=== PATIENT | female | born 1955 | race Hispanic/Latino ===

== ENCOUNTER 2016-12-23 17:06 | Outpatient (CLI) | payer BC ==
--- NOTE | 2016-12-24 11:39 | Magnetic Resonance Report ---
MRI BRAIN WITHOUT AND WITH CONTRAST: 12/23/16 00:00:00 CLINICAL: TECHNIQUE: Axial diffusion, T1, gradient echo T2*, coronal and axial FLAIR, sagittal, coronal and axial T2 and sagittal T1 plus coronal and axial postcontrast T1 sequences on a 1.5 Marium magnet. 12.0 cc of Multihance was injected intravenously for the contrast portion of the exam. Consent was obtained prior to the administration of contrast. FINDINGS: Normal ventricles and sulci. No restricted diffusion. No abnormal signal. No mass or enhancing lesion. No hemorrhage, edema or extra-axial collection. Normal pituitary and optic chiasm. The brainstem and cerebellum are normal. Intact vascular flow voids. The orbits, sinuses and soft tissues are normal. Normal calvarium and skull base. IMPRESSION: Normal study.
== END 2016-12-23 17:07 | disposition home or self-care (01) ==
LOC: MRI 17:06
PROVIDERS: ATTEND Specialist
DX: G35 Multiple sclerosis (principal); F32.9 Major depressive disorder, single episode, unspecified; F41.9 Anxiety disorder, unspecified; F17.200 Nicotine dependence, unspecified, uncomplicated
CPT/HCPCS: 70553; A9577

== ENCOUNTER 2017-06-29 07:51 | Day surgery (SDC) | payer BC ==
[~2017-06-29 07:51] MED LIST: TETRACAINE 0.5% OS PRN
[2017-06-29] MEDS ORDERED: NACL BACTERIOSTATIC INFILTRATI ONE ×2 (08:36→09:10)
[2017-06-29] MEDS: VIGAMOX OS SCH ×3 (09:35→09:45)
[2017-06-29] MEDS: AK-Dilate OS SCH ×3 (09:35→09:45)
[2017-06-29] MEDS: MYDRIACYL OS SCH ×3 (09:35→09:45)
[2017-06-29] MEDS ORDERED: VERSED ONE (10:16)
[2017-06-29] MEDS ORDERED: SUBLIMAZE ONE (10:16)
--- NOTE | 2017-06-29 10:43 | Operative Report ---
Operative Report Operative Report: PATIENT'S NAME: DATE OF : DATE OF SURGERY: 06/29/2017 PREOPERATIVE DIAGNOSIS: Cataract left eye POSTOPERATIVE DIAGNOSIS: Same OPERATIVE PROCEDURE: Phacoemulsification with intraocular lens implantation, left eye SURGEON: Anjana Anderson M.D. CRIME LABORATORY ANALYST SURGEON: Breonna Lens: [id number] 25.5 D ANESTHESIA: Monitored anesthesia care in combination with topical and intracameral anesthesia because of the established specific risk of reflux, arrhythmias, or anxiety attacks associated with ocular manipulation, as well as the difficulty of the lamps tester and inspector to manage such potentially catastrophic events while simultaneously attempting to complete the surgical procedure and was deemed necessary for the patient's safety to have an Industrial Eng present during the procedure whenever possible. An Industrial Eng was utilized to regulate the intravenous sedation of the patient so the patient was cooperative yet not asleep in order for the patient to successfully maintain fixation of the eye on the operating light of the microscope. COMPLICATIONS: No surgical complications No blood loss. ALLERGIES: No known drug allergies PROGNOSIS: Excellent INDICATIONS FOR SURGERY: The patient is undergoing surgery in the hopes of eliminating or improving these visual difficulties. PROCEDURE: After arriving at the surgery center, the patient was given topical anesthetic and dilating drops, as noted in the record. The patient was then taken into the operating room and given more anesthetic drops. The eyelids , lashes, and lid margins were scrubbed with Betadine solution, and the patient was draped. The Nurse Industrial Eng administered IV sedation and monitored the patient during the procedure. The eye was then fixated with a 0.12, and a stab incision was made in the peripheral clear cornea into the anterior chamber. This was made on my left side. Viscoelastic was next used to fill the anterior chamber. The eye was once again fixated with the 0.12 forceps and a keratome was used make an incision in clear cornea peripherally on my right hand side temporally. The capsule forceps were used to open the central anterior capsule and then make a continuous round capsulotomy. Hydrodissection was carried out utilizing a cannula and balanced salt solution to delineate the cortical material from the capsule and the nucleus from the cortical material. The phaco tip was introduced into the eye and used to remove the anterior cortical material in the area of the capsulotomy. Then the phaco tip was buried into the nucleus, and a chopping instrument was introduced into the eye and used to provide countertraction in the nucleus between this instrument and the phaco tip fracturing the nucleus. This procedure was repeated multiple times, providing multiple small segments of the lens, and then the phaco tip was used to remove each of these segments. An I/A tip was then used to remove the remaining cortex. The anterior chamber was refilled with viscoelastic. An one-piece, acrylic intraocular lens was then placed into an inserting cartridge. The tip of the inserting cartridge was introduced into the keratome incision and into the anterior chamber. The implant was gently advanced through the cartridge and into the eye, where it unfolded, and both haptics were placed in the capsular bag, where it centered nicely and appeared to be well fixated. After placement of the intraocular lens, the I~and~A handpiece was placed back into the eye and used to remove the viscoelastic, including viscoelastic that was behind the optic of the intraocular lens. The anterior chamber was then filled with balanced salt solution, and hydration of the wound was used to cause swelling of the wound and more appropriate watertight closure. When the wound was found to be firm, the patient was asked to comment on how bright the light was. If there was no light perception at all or if the light was substantially dimmer than during the rest of the surgery, the amount of fluid in the eye was decompressed to lower the intraocular pressure until the patient could see the bright light again. This was done to avoid any damage or decreased blood flow to the optic nerve. MEDICATIONS APPLIED AT END OF SURGERY: One drop of Pred Forte and Vigamox The patient was given a shield to wear at night and was instructed not to rub or push on the eye. DISCHARGE SUMMARY: The patient was released in stable condition. The patient and those with the patient were given a written sheet of postoperative instructions and counseling on any abnormal laboratory studies. The patient is to see us tomorrow for follow-up in the office and is to call immediately for any difficulties. Anjana Anderson M.D. Date
--- NOTE | 2017-06-29 10:44 | Short Stay Summary ---
Short Stay Documentation Date of service: 06/29/17 - History H&P: obtained from office - Allergies and Medications Current Medications: Allergies No Known Allergies Allergy (Verified 06/27/17 17:58) Home Medications Medication Instructions Recorded Confirmed Last Taken Type Estradiol [Estrace] 1 mg PO QDAY 02/17/15 06/29/17 06/29/17 History Gabapentin [Neurontin] 400 mg PO QID 02/17/15 06/29/17 06/29/17 History buPROPion XL [Wellbutrin Xl] 300 mg PO QAM 02/17/15 06/29/17 06/29/17 History ALPRAZolam [Xanax TAB] 0.5 mg PO QHS 05/28/15 06/29/17 06/28/17 History Baclofen [Lioresal] 10 mg PO QID 06/27/17 06/29/17 06/29/17 History HYDROcodone/ACETAMINOPHEN 0.5 tab PO BID 06/27/17 06/29/17 06/28/17 History [Hydrocodon-Acetaminophen 5-325] Ocrelizumab [Ocrevus] 300 mg IV [id number] 06/27/17 06/27/17 Unknown History Active Medications Moxifloxacin HCl (Vigamox) 1 drops OS Q5MIN [facility] Stop: 07/01/17 06:01 Last Admin: 06/29/17 09:45 Dose: 1 drops Phenylephrine HCl (Ak-Dilate) 1 drops OS Q5MIN [facility] Stop: 07/01/17 06:01 Last Admin: 06/29/17 09:45 Dose: 1 drops Prednisolone Acetate (Pred Forte 1%) 1 drops OS QID [facility] Tetracaine HCl (Tetracaine 0.5%) 1 drops OS Q5M PRN PRN Reason: Analgesia Last Admin: 06/29/17 09:35 Dose: 1 drops Tropicamide (Mydriacyl) 1 drops OS Q5MIN [facility] Stop: 07/01/17 06:01 Last Admin: 06/29/17 09:45 Dose: 1 drops - Brief post op/procedure progress note Date of procedure: 06/29/17 Pre-op diagnosis: left cataract Post-op diagnosis: same Procedure: Phacoemulsification with intraocular lens insertion left eye Anesthesia: MAC, local Surgeon: ELIANA ZAMORA Estimated blood loss: none Pathology: none Condition: stable - Disposition Condition at discharge: Good Disposition: DC-01 TO HOME OR SELFCARE - Discharge Diagnoses (1) Cataract Status: Acute Qualifiers: Cataract type: age-related Age-related cataract type: nuclear Laterality : left Qualified Code(s): H25.12 - Age-related nuclear cataract, left eye Short Stay Discharge Plan Follow up with: JUAN MI JR, MD [Primary Care Provider] - 7 Days
--- NOTE | 2017-06-29 11:28 | Post Anesthesia Evaluation ---
- Post Anesthesia Evaluation Patient Participated: Yes Airway Patent: Yes Stable Respiratory Function: Yes Nausea/Vomiting: No Temp > 96.8F: Yes Pain Manageable: Yes Adequeate Hydration: Yes Anesthesia Complications: No
--- NOTE | 2017-06-29 11:28 | Anesthesia Day of Surgery ---
Anesthesia Day of Surgery - Day of Surgery Patient Examined: Yes Patient H&P Reviewed: Yes Patient is NPO: Yes
--- NOTE | 2017-06-29 11:28 | Anesthesia Consultation ---
Anesthesia Consult and Med Hx Date of service: 06/22/17 - Airway Anesthetic Teeth Evaluation: Good ROM Head & Neck: Adequate Mental/Hyoid Distance: Adequate Mallampati Class: Class II Intubation Access Assessment: Probably Good - Pulmonary Exam CTA: Yes - Cardiac Exam Cardiac Exam: RRR - Pre-Operative Health Status ASA Pre-Surgery Classification: ASA3 Proposed Anesthetic Plan: IV Sedation - Pulmonary Hx Smoking: Yes (FOR 25 YEARS QUIT IN 2016) - Central Nervous System Hx Neuromuscular Disorder: Yes (MS) Hx Psychiatric Problems: No - Other Systems Hx Alcohol Use: No Hx Substance Use: No Hx Cancer: No
[2017-06-29 12:53] VITALS: BP 113/58
[2017-06-29] MEDS ORDERED: PRED FORTE 1% OS SCH (14:00)
== END 2017-06-29 07:52 | disposition home or self-care (01) ==
LOC: OR 07:51
DX: H25.12 Age-related nuclear cataract, left eye (principal)
CPT/HCPCS: 66984; J2250; J3010; V2632

== ENCOUNTER 2017-07-13 08:45 | Day surgery (SDC) | payer BC ==
[~2017-07-13 08:45] MED LIST changes: +TETRACAINE 0.5% OD PRN; -TETRACAINE 0.5% OS PRN
[2017-07-13] MEDS: VIGAMOX OD SCH ×3 (10:15→10:30)
[2017-07-13] MEDS: MYDRIACYL OD SCH ×3 (10:15→10:30)
[2017-07-13] MEDS: AK-Dilate OD SCH ×3 (10:15→10:30)
--- NOTE | 2017-07-13 10:52 | Anesthesia Day of Surgery ---
Anesthesia Day of Surgery - Day of Surgery Patient Examined: Yes Patient H&P Reviewed: Yes Patient is NPO: Yes Beta Blockers: Yes
--- NOTE | 2017-07-13 10:52 | Anesthesia Consultation ---
Anesthesia Consult and Med Hx Date of service: 07/13/17 - Airway Anesthetic Teeth Evaluation: Good ROM Head & Neck: Adequate Mental/Hyoid Distance: Adequate Mallampati Class: Class II Intubation Access Assessment: Good - Pulmonary Exam CTA: Yes - Cardiac Exam Cardiac Exam: RRR - Pre-Operative Health Status ASA Pre-Surgery Classification: ASA3 Proposed Anesthetic Plan: MAC - Pulmonary Hx Smoking: Yes (quit 2 years ago) - Central Nervous System Hx Neuromuscular Disorder: Yes (MS, essential tremors) - Other Systems Hx Alcohol Use: No Hx Substance Use: No Hx Cancer: No - Additional Comments Anesthesia Medical History Comments: Had other eye done on 06/22/17. tolearted procedure and anesthesia well. Informed consent obtained
[2017-07-13] MEDS ORDERED: VERSED ONE (12:48)
[2017-07-13] MEDS ORDERED: SUBLIMAZE ONE (12:48)
--- NOTE | 2017-07-13 13:11 | Operative Report ---
Operative Report Operative Report: PATIENT'S NAME: DATE OF : DATE OF SURGERY: 07/13/2017 PREOPERATIVE DIAGNOSIS: Cataract right eye POSTOPERATIVE DIAGNOSIS: Same OPERATIVE PROCEDURE: Phacoemulsification with intraocular lens implantation, RIGHT eye SURGEON: Anjana Anderson M.D. ACCOUNTING REPRESENTATIVE SURGEON: Breonna Lens: SA60wf 25.0 D ANESTHESIA: Monitored anesthesia care in combination with topical and intracameral anesthesia because of the established specific risk of reflux, arrhythmias, or anxiety attacks associated with ocular manipulation, as well as the difficulty of the pharmacy customer care specialist to manage such potentially catastrophic events while simultaneously attempting to complete the surgical procedure and was deemed necessary for the patient's safety to have an Hat Cleaner present during the procedure whenever possible. An Hat Cleaner was utilized to regulate the intravenous sedation of the patient so the patient was cooperative yet not asleep in order for the patient to successfully maintain fixation of the eye on the operating light of the microscope. COMPLICATIONS: No surgical complications No blood loss. ALLERGIES: No known drug allergies PROGNOSIS: Excellent INDICATIONS FOR SURGERY: The patient is undergoing surgery in the hopes of eliminating or improving these visual difficulties. PROCEDURE: After arriving at the surgery center, the patient was given topical anesthetic and dilating drops, as noted in the record. The patient was then taken into the operating room and given more anesthetic drops. The eyelids , lashes, and lid margins were scrubbed with Betadine solution, and the patient was draped. The Nurse Hat Cleaner administered IV sedation and monitored the patient during the procedure. The eye was then fixated with a 0.12, and a stab incision was made in the peripheral clear cornea into the anterior chamber. This was made on my left side. Viscoelastic was next used to fill the anterior chamber. The eye was once again fixated with the 0.12 forceps and a keratome was used make an incision in clear cornea peripherally on my right hand side temporally. The capsule forceps were used to open the central anterior capsule and then make a continuous round capsulotomy. Hydrodissection was carried out utilizing a cannula and balanced salt solution to delineate the cortical material from the capsule and the nucleus from the cortical material. The phaco tip was introduced into the eye and used to remove the anterior cortical material in the area of the capsulotomy. Then the phaco tip was buried into the nucleus, and a chopping instrument was introduced into the eye and used to provide countertraction in the nucleus between this instrument and the phaco tip fracturing the nucleus. This procedure was repeated multiple times, providing multiple small segments of the lens, and then the phaco tip was used to remove each of these segments. An I/A tip was then used to remove the remaining cortex. The anterior chamber was refilled with viscoelastic. An one-piece, acrylic intraocular lens was then placed into an inserting cartridge. The tip of the inserting cartridge was introduced into the keratome incision and into the anterior chamber. The implant was gently advanced through the cartridge and into the eye, where it unfolded, and both haptics were placed in the capsular bag, where it centered nicely and appeared to be well fixated. After placement of the intraocular lens, the I~and~A handpiece was placed back into the eye and used to remove the viscoelastic, including viscoelastic that was behind the optic of the intraocular lens. The anterior chamber was then filled with balanced salt solution, and hydration of the wound was used to cause swelling of the wound and more appropriate watertight closure. When the wound was found to be firm, the patient was asked to comment on how bright the light was. If there was no light perception at all or if the light was substantially dimmer than during the rest of the surgery, the amount of fluid in the eye was decompressed to lower the intraocular pressure until the patient could see the bright light again. This was done to avoid any damage or decreased blood flow to the optic nerve. MEDICATIONS APPLIED AT END OF SURGERY: One drop of Pred Forte and Vigamox The patient was given a shield to wear at night and was instructed not to rub or push on the eye. DISCHARGE SUMMARY: The patient was released in stable condition. The patient and those with the patient were given a written sheet of postoperative instructions and counseling on any abnormal laboratory studies. The patient is to see us tomorrow for follow-up in the office and is to call immediately for any difficulties. Anjana Anderson M.D. Date
--- NOTE | 2017-07-13 13:12 | Short Stay Summary ---
Short Stay Documentation Date of service: 07/13/17 - History H&P: obtained from office - Allergies and Medications Current Medications: Allergies No Known Allergies Allergy (Verified 07/10/17 15:39) Home Medications Medication Instructions Recorded Confirmed Last Taken Type Estradiol [Estrace] 1 mg PO QDAY 02/17/15 07/13/17 07/12/17 History Gabapentin [Neurontin] 400 mg PO QID 02/17/15 07/13/17 07/13/17 06:30 History buPROPion XL [Wellbutrin Xl] 300 mg PO QAM 02/17/15 07/13/17 07/13/17 06:30 History ALPRAZolam [Xanax TAB] 0.5 mg PO QHS 05/28/15 07/13/17 07/12/17 History Baclofen [Lioresal] 10 mg PO QID 06/27/17 07/13/17 07/13/17 06:30 History HYDROcodone/ACETAMINOPHEN 0.5 tab PO BID 06/27/17 07/13/17 07/12/17 History [Hydrocodon-Acetaminophen 5-325] Ocrelizumab [Ocrevus] 300 mg IV [id number] 06/27/17 07/13/17 5 Months Ago History ~02/10/17 Propranolol HCl [Propranolol HCl 60 mg PO DAILY 07/13/17 07/13/17 07/13/17 06: 30 History ER] traMADol [Ultram 50 MG tab] 1 tab PO DAILY 07/13/17 07/13/17 07/13/17 06:30 History Active Medications Moxifloxacin HCl (Vigamox) 1 drops OD Q5MIN [facility] Stop: 07/15/17 06:01 Last Admin: 07/13/17 10:30 Dose: 1 drops Phenylephrine HCl (Ak-Dilate) 1 drops OD Q5MIN [facility] Stop: 07/15/17 06:01 Last Admin: 07/13/17 10:30 Dose: 1 drops Prednisolone Acetate (Pred Forte 1%) 1 drops OD QID [facility] Tetracaine HCl (Tetracaine 0.5%) 1 drops OD Q5M PRN PRN Reason: Analgesia Last Admin: 07/13/17 10:15 Dose: 1 drops Tropicamide (Mydriacyl) 1 drops OD Q5MIN [facility] Stop: 07/15/17 06:01 Last Admin: 07/13/17 10:30 Dose: 1 drops - Brief post op/procedure progress note Date of procedure: 07/13/17 Pre-op diagnosis: cataract right eye Post-op diagnosis: same Procedure: Phacoemulsification with intraocular lens insertion right eye Anesthesia: MAC, local Surgeon: ELIANA ZAMORA Estimated blood loss: none Pathology: none Condition: stable - Disposition Condition at discharge: Good Disposition: DC-01 TO HOME OR SELFCARE - Discharge Diagnoses (1) Cataract Status: Resolved Qualifiers: Cataract type: age-related Age-related cataract type: nuclear Laterality : right Qualified Code(s): H25.11 - Age-related nuclear cataract, right eye Short Stay Discharge Plan Follow up with: JUAN MI JR, MD [Primary Care Provider] - 7 Days
[2017-07-13] MEDS ORDERED: PRED FORTE 1% OD SCH (14:00)
[2017-07-13 15:01] VITALS: BP 105/65
== END 2017-07-13 13:59 | disposition home or self-care (01) ==
LOC: OR 08:45
DX: H26.9 Unspecified cataract (principal); G35 Multiple sclerosis; Z79.899 Other long term (current) drug therapy; Z87.891 Personal history of nicotine dependence; Z90.710 Acquired absence of both cervix and uterus; Z98.890 Other specified postprocedural states
CPT/HCPCS: 66984; J2250; J3010; V2632

== ENCOUNTER 2018-02-02 12:12 | Outpatient (CLI) | payer BC ==
[2018-02-02 12:50] LABS: Basophils % (Auto) 0.6 % (0.0-1.8); Eosinophils # (Auto) 0.1 K/mm3 (0.0-0.4); Eosinophils % (Auto) 2.2 % (0.0-4.3); Hematocrit 39.5 % (30.3-42.9); Hemoglobin 13.3 gm/dl (10.1-14.3); Lymphocytes % (Auto) 19.7 % (13.4-35.0); Mean Corpuscular HGB Conc 34 % (30-34); Mean Corpuscular Hemoglobin 31 pg (28-32); Mean Corpuscular Volume 91 fl (79-97); Monocytes # (Auto) 0.5 K/mm3 (0.0-0.8); Monocytes % (Auto) 9.4 % (0.0-7.3); Platelet Count 264 K/mm3 (140-440); Red Blood Count 4.34 M/mm3 (3.65-5.03); Red Cell Distribution Width 13.9 % (13.2-15.2)
[2018-02-02 13:06] LABS: Alanine Aminotransferase 20 units/L (7-56); Albumin 4.1 g/dL (3.9-5); BUN/Creatinine Ratio 18; Blood Urea Nitrogen 9 mg/dL (7-17); Calcium 9.3 mg/dL (8.4-10.2); Hemolysis Index 8
== END 2018-02-02 12:13 | disposition home or self-care (01) ==
LOC: LAB 12:12
PROVIDERS: ATTEND Specialist
DX: Z11.3 Encounter for screening for infections with a predominantly sexual mode of transmission (principal); Z23 Encounter for immunization; Z13.1 Encounter for screening for diabetes mellitus; G35 Multiple sclerosis; F32.9 Major depressive disorder, single episode, unspecified; F41.9 Anxiety disorder, unspecified; Z90.710 Acquired absence of both cervix and uterus; Z87.891 Personal history of nicotine dependence
CPT/HCPCS: 36415; 80053; 83036; 85025; 86592; 86787

== ENCOUNTER 2018-06-29 09:31 | Outpatient (CLI) | payer BC ==
--- NOTE | 2018-06-29 13:47 | Magnetic Resonance Report ---
MRI BRAIN WITHOUT AND WITH CONTRAST: 06/29/18 CLINICAL: Multiple sclerosis. COMPARISON: 12/23/16 TECHNIQUE: Axial diffusion, T1, FLAIR, gradient echo T2*, and coronal and axial T2 and sagittal T1 plus coronal and axial postcontrast T1 sequences on a 1.5 Marium magnet. 14.0 cc of Multihance was injected intravenously for the contrast portion of the exam. Consent was obtained prior to the administration of contrast. FINDINGS: The ventricles and sulci are normal for age. No restricted diffusion. No mass or enhancing lesion. No hemorrhage, edema or extra-axial collection. A few bilateral subtle white matter hyperintensities FLAIR and T2. At least four tiny subcentimeter left inferior cerebellar chronic lacunar infarcts are unchanged compared to the previous exam. Normal pituitary and optic chiasm. The brainstem is normal. Intact vascular flow voids. The orbits, sinuses and soft tissues are normal. Normal calvarium and skull base. IMPRESSION: 1. A few small nonspecific bilateral subtle white matter hyperintensities on FLAIR and T2. 2. No pathognomonic changes of MS. 3. Tiny left inferior cerebellar chronic lacunar infarcts unchanged compared to the previous exam. 4. No acute change.
--- NOTE | 2018-06-29 15:46 | Magnetic Resonance Report ---
MRI CERVICAL SPINE WITHOUT AND WITH CONTRAST: 06/29/18 CLINICAL: Multiple sclerosis. No comparison. TECHNIQUE: Sagittal T1,T2 and STIR and axial gradient T2* sequences plus sagittal and axial postcontrast T1 fat sat sequences on a 1.5 Marium magnet. 14.0 cc of Multihance was injected intravenously for the contrast portion of the exam and consent was obtained prior to administration of contrast. FINDINGS:Normal vertebral body height and alignment. Mild disc space narrowing at C5-6. The rest of the disc spaces are normal. The overall marrow signal is normal. The spinal cord is normal size with normal signal. No mass and no enhancing lesion. The cerebellar tonsils are in normal position. C2-3: Intact. C3-4:A small central annular tear but otherwise intact disc. Small posterior osteophytes. Multiple foci of T2 hyperintense signal on the gradient echo axial sequence involving the anterior and posterior cord on both sides. C4-5: Small right paracentral disc protrusion and uncal osteophyte producing mild right neural foraminal narrowing. A T2 hyperintense lesion of the left posterior cord. C5-6:The disc is intact. However, bilateral uncal osteophytes and moderate bilateral neural foraminal narrowing secondary to osteophytes. A T2 hyperintense lesion of the left lateral cord. C6-7:Intact. C7-T1:Intact. IMPRESSION: 1. Multiple T2 hyperintense cord lesions on the axial gradient echo sequence from C3-4 through C5-6. They are not identified on sagittal T2 or STIR sequences and none of these lesions enhance. They are however suspicious for MS lesions. 2. Multilevel degenerative disc disease as described.
== END 2018-06-29 09:32 | disposition home or self-care (01) ==
LOC: SPVIMAG 09:31
PROVIDERS: ATTEND Specialist
DX: M50.221 Other cervical disc displacement at C4-C5 level (principal); M50.30 Other cervical disc degeneration, unspecified cervical region; M48.02 Spinal stenosis, cervical region; M25.78 Osteophyte, vertebrae; Z90.710 Acquired absence of both cervix and uterus; Z87.891 Personal history of nicotine dependence
CPT/HCPCS: 70553; 72156; A9577

== ENCOUNTER 2018-08-07 12:07 | Outpatient (CLI) | payer BC ==
[2018-08-07 16:54] LABS: Hematocrit 37.1 % (30.3-42.9); Hemoglobin 12.6 gm/dl (10.1-14.3); Mean Corpuscular HGB Conc 34 % (30-34); Mean Corpuscular Volume 90 fl (79-97); Platelet Count 202 K/mm3 (140-440); Red Cell Distribution Width 13.4 % (13.2-15.2)
[2018-08-07 17:14] LABS: Alanine Aminotransferase 27 units/L (7-56)
[2018-08-07 17:31] LABS: Bilirubin,Direct < 0.2 mg/dL (0-0.2)
[2018-08-07 18:03] LABS: Basophils % (Manual) 0 % (0.0-1.8); Platelet Estimate Consistent w Auto; RBC Morphology Normal; Total Cells Counted 100
== END 2018-08-07 12:08 | disposition home or self-care (01) ==
LOC: LAB 12:07
PROVIDERS: ATTEND Specialist
DX: G35 Multiple sclerosis (principal); Z90.710 Acquired absence of both cervix and uterus; Z87.891 Personal history of nicotine dependence
CPT/HCPCS: 36415; 80076; 85007; 85025

== ENCOUNTER 2019-02-20 14:53 | Outpatient (CLI) | payer BC ==
[2019-02-20 15:17] LABS: Basophils % (Auto) 0.5 % (0.0-1.8); Eosinophils # (Auto) 0.1 K/mm3 (0.0-0.4); Eosinophils % (Auto) 1.6 % (0.0-4.3); Hematocrit 41.8 % (30.3-42.9); Hemoglobin 14.1 gm/dl (10.1-14.3); Lymphocytes # (Auto) 0.6 K/mm3 (1.2-5.4); Lymphocytes % (Auto) 17.4 % (13.4-35.0); Mean Corpuscular HGB Conc 34 % (30-34); Mean Corpuscular Volume 92 fl (79-97); Monocytes # (Auto) 0.3 K/mm3 (0.0-0.8); Monocytes % (Auto) 10.1 % (0.0-7.3); Platelet Count 220 K/mm3 (140-440); Red Blood Count 4.57 M/mm3 (3.65-5.03); Red Cell Distribution Width 13.6 % (13.2-15.2)
[2019-02-20 15:32] LABS: Alanine Aminotransferase 26 units/L (7-56); Albumin 4.5 g/dL (3.9-5); BUN/Creatinine Ratio 23; Blood Urea Nitrogen 16 mg/dL (7-17); Calcium 9.5 mg/dL (8.4-10.2); Chol/HDL Ratio 4.18 %; HDL Cholesterol 53 mg/dL (40-59); Hemolysis Index 18; LDL Cholesterol,Direct 152 mg/dL (50-130)
--- NOTE | 2019-02-20 16:05 | XRay Report ---
RIGHT TOES, 3 VIEWS INDICATION: S92.403A) initial encounter for closed fracture.. COMPARISON: None. IMPRESSION: Mildly displaced fracture is identified involving the proximal phalanx of the great toe near the PIP joint. There is mild dorsal displacement. The remaining right toes are intact. No signi ficant DJD. Signer Name: Jd Antonio Jr, MD Signed: 02/20/2019 4:00 PM Workstation Name: [id number]
== END 2019-02-20 14:54 | disposition home or self-care (01) ==
LOC: XRAY 14:53
PROVIDERS: ATTEND Internal Medicine
DX: S92.403A Displaced unspecified fracture of unspecified great toe, initial encounter for closed fracture (principal); E87.6 Hypokalemia; Z78.9 Other specified health status; G35 Multiple sclerosis; R79.89 Other specified abnormal findings of blood chemistry; X58.XXXA Exposure to other specified factors, initial encounter; Y93.89 Activity, other specified; Y99.8 Other external cause status; Y92.89 Other specified places as the place of occurrence of the external cause
CPT/HCPCS: 36415; 80053; 80061; 82306; 84443; 85025

== ENCOUNTER 2019-04-02 11:53 | Outpatient (CLI) | payer BC ==
[2019-04-02 12:55] LABS: Basophils # (Auto) 0.1 K/mm3 (0.0-0.1); Basophils % (Auto) 1.6 % (0.0-1.8); Eosinophils # (Auto) 0.1 K/mm3 (0.0-0.4); Eosinophils % (Auto) 2.1 % (0.0-4.3); Hematocrit 38.1 % (30.3-42.9); Hemoglobin 13.2 gm/dl (10.1-14.3); Lymphocytes # (Auto) 1.1 K/mm3 (1.2-5.4); Lymphocytes % (Auto) 25.9 % (13.4-35.0); Mean Corpuscular HGB Conc 35 % (30-34); Mean Corpuscular Volume 90 fl (79-97); Monocytes # (Auto) 0.3 K/mm3 (0.0-0.8); Monocytes % (Auto) 7.7 % (0.0-7.3); Platelet Count 214 K/mm3 (140-440); Red Blood Count 4.25 M/mm3 (3.65-5.03); Red Cell Distribution Width 13.4 % (13.2-15.2)
[2019-04-02 13:21] LABS: Alanine Aminotransferase 25 units/L (7-56); Albumin 4.1 g/dL (3.9-5); BUN/Creatinine Ratio 17; Blood Urea Nitrogen 12 mg/dL (7-17); Calcium 9.2 mg/dL (8.4-10.2); Hemolysis Index 3
[2019-04-02 14:07] LABS: Hepatitis C Virus Antibody Non-Reactive (NonReactive)
[2019-04-04 08:13] LABS: HIV-1 Antibody Differentiation SEE SCANNED RESULT; HIV-2 Antibody Differentiation SEE SCANNED RESULT
== END 2019-04-02 11:54 | disposition home or self-care (01) ==
LOC: LAB 11:53
PROVIDERS: ATTEND Specialist
DX: G35 Multiple sclerosis (principal)
CPT/HCPCS: 36415; 80053; 82164; 85025; 86689; 86705; 86803